=== PATIENT | female | born 1965 | race Caucasian/White ===

== ENCOUNTER 2016-07-05 08:17 | Outpatient (RCR) | payer OTHER ==
--- OUTSIDE RECORDS SUMMARY | 2016-04-17 12:21 | XMS REPORT ---
Author Author POOJA DEY [facility] eClinicalWorks Address Unknown Phone Unavailable Care Team Providers Care Lead Qa Analyst Name Role Phone POOJA DEY Unavailable Allergies No Known Allergies Problems Problem Type Condition Code Onset Dates Condition Status Problem Urinary frequency 788.41 Active Problem Headache 784.0 Active Problem Rash and other nonspecific skin eruption 782.1 Active Problem Cellulitis and abscess 682.9 Active Problem Nondependent tobacco use disorder 305.1 Active Problem Depression 311 Active Problem Other chronic pain 338.29 Active Problem Screening examination for pulmonary tuberculosis V74.1 Active Problem 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
[~2016-07-05 08:17] MED LIST: AMOX500C2 PO; ATOR10TA PO; DABI150C2 PO; IBUP-2055 PO; NDL40T PO; NFPRILOC40 PO; TRM50T PO; TYLENOL
== END 2016-07-16 | disposition home or self-care (01) ==
LOC: WOUNDCARE 08:17
PROVIDERS: ATTEND Surgery
DX: L97.212 Non-pressure chronic ulcer of right calf with fat layer exposed (principal); I87.311 Chronic venous hypertension (idiopathic) with ulcer of right lower extremity; I70.232 Atherosclerosis of native arteries of right leg with ulceration of calf; T65.222A Toxic effect of tobacco cigarettes, intentional self-harm, initial encounter; L92.8 Other granulomatous disorders of the skin and subcutaneous tissue
CPT/HCPCS: 11042; 17250; 87070; 87075; 87205; 99204; 99212; 99213

== ENCOUNTER 2016-08-18 08:18 | Outpatient (RCR) | payer SELFPAY | END 2016-08-18 12:00 | disposition home or self-care (01) | LOC: WOUNDCARE 08:18 | PROVIDERS: ATTEND Surgery | DX: L97.212 Non-pressure chronic ulcer of right calf with fat layer exposed (principal); I87.311 Chronic venous hypertension (idiopathic) with ulcer of right lower extremity; I70.232 Atherosclerosis of native arteries of right leg with ulceration of calf; T65.222A Toxic effect of tobacco cigarettes, intentional self-harm, initial encounter | CPT/HCPCS: 29581; 99212; 99213 ==

== ENCOUNTER 2017-01-17 08:15 | Outpatient (RCR) | payer BC | END 2017-01-22 16:00 | disposition home or self-care (01) | LOC: WOUNDCARE 08:15 | PROVIDERS: ATTEND Surgery | DX: L97.212 Non-pressure chronic ulcer of right calf with fat layer exposed (principal); I87.331 Chronic venous hypertension (idiopathic) with ulcer and inflammation of right lower extremity; I70.232 Atherosclerosis of native arteries of right leg with ulceration of calf; T65.222A Toxic effect of tobacco cigarettes, intentional self-harm, initial encounter | CPT/HCPCS: 11042; 87070; 87075; 87186; 87205; 99212 ==

== ENCOUNTER 2019-03-10 13:33 | Emergency (ER) | payer BC ==
[~2019-03-10] VITALS: Ht 172 cm; Wt 70.0 kg
[2019-03-10] MEDS ORDERED: ASPIRIN 81 MG CHEW (CHILDREN'S ASA) ONE (13:36)
[2019-03-10] MEDS ORDERED: ASPIRIN 81 MG CHEW (CHILDREN'S ASA) PO ONE (13:45)
[2019-03-10 13:52] LABS: BASOPHILS % (AUTO) 0 % (0-10); EOSINOPHILS # (AUTO) 0.1 10^3/uL (0.0-0.3); EOSINOPHILS % (AUTO) 1 % (0-10); HEMATOCRIT 38 % (35-52); HEMOGLOBIN 12.2 G/DL (11.5-16.0); LYMPHOCYTES # (AUTO) 1.7 X 10^3 (1.0-4.0); LYMPHOCYTES % (AUTO) 20 % (12-44); MEAN CORPUSCULAR HEMOGLOBIN 31 PG (25-34); MEAN CORPUSCULAR HGB CONC 33 G/DL (32-36); MEAN CORPUSCULAR VOLUME 95 FL (80-99); MEAN PLATELET VOLUME 9.2 FL (7.4-10.4); MONOCYTES # (AUTO) 0.6 X 10^3 (0.0-1.0); MONOCYTES % (AUTO) 7 % (0-12); NEUTROPHILS % (AUTO) 72 % (42-75); PLATELET COUNT 244 10^3/uL (130-400); RED CELL DISTRIBUTION WIDTH 14.3 % (10.0-14.5); WHITE BLOOD COUNT 8.3 10^3/uL (4.3-11.0)
[2019-03-10 13:59] LABS: PROTHROMBIN TIME PATIENT 13.5 SEC (12.2-14.7)
[2019-03-10 14:06] LABS: ALANINE AMINOTRANSFERASE 7 U/L (0-55); ALBUMIN 4.6 GM/DL (3.2-4.5); ALKALINE PHOSPHATASE 70 U/L (40-136); BILIRUBIN,TOTAL 0.5 MG/DL (0.1-1.0); BUN/CREATININE RATIO 13; CALCIUM 9.9 MG/DL (8.5-10.1); CARBON DIOXIDE 23 MMOL/L (21-32); CHLORIDE 106 MMOL/L (98-107); CREATININE SERUM 0.78 MG/DL (0.60-1.30); GFR ESTIMATED > 60; GLUCOSE 108 MG/DL (70-105); LIPASE 47 U/L (8-78); POTASSIUM 3.9 MMOL/L (3.6-5.0); SODIUM 138 MMOL/L (135-145); TOTAL PROTEIN 7.9 GM/DL (6.4-8.2)
[2019-03-10 14:07] LABS: ACETAMINOPHEN < 10 UG/ML (10-30)
--- NOTE | 2019-03-10 14:13 | Diagnostic Imaging Report ---
INDICATION: Chest pain and cough. TIME OF EXAM: 1:57 PM COMPARISON: Correlation is made with prior chest 06/09/2016. FINDINGS: Heart size is stable. Lungs are hyperinflated consistent with COPD. Chronic parenchymal densities in the upper lobes bilaterally appear stable. No new infiltrate is detected. There is no effusion or pneumothorax. IMPRESSION: Stable chronic changes when compared with examination from 06/09/2016. Dictated by: Dictated on workstation # [id number]
[2019-03-10 14:14] LABS: CREATINE KINASE MB 0.5 NG/ML (<6.6)
[2019-03-10 14:19] LABS: BILIRUBIN,URINE NEGATIVE (NEGATIVE); CLARITY,URINE CLEAR; COLOR,URINE YELLOW; GLUCOSE, URINE (UA) NEGATIVE (NEGATIVE); KETONES,URINE 1+ (NEGATIVE); LEUKOCYTE ESTERASE ,URINE NEGATIVE (NEGATIVE); NITRITE,URINE NEGATIVE (NEGATIVE); PH,URINE 7 (5-9); PROTEIN,URINE NEGATIVE (NEGATIVE); UROBILINOGEN,URINE NORMAL (NORMAL)
[2019-03-10 14:26] LABS: TSH (THYROID ANALYZER) 0.91 UIU/ML (0.35-4.94)
[2019-03-10] MEDS ORDERED: HYDR-700 PO ×2 (14:39→16:39)
--- NOTE | 2019-03-10 14:39 | ED Cardiac General ---
History of Present Illness General Chief Complaint: Chest Pain Stated Complaint: CHEST TIGHTNESS Nursing Triage Note: PT AMBULATES TO ROOM 7 PT CO OF CHEST PAIN FOR APPROX 5 DAYS STATES HAS SHAKING, POOR APPETITE, COUGH, POOR SLEEPING. PT HAS PVD AND CHRONIC WOUND R LOWER EXT. PT ALSO STATES STOPPED TAKING HYDROCODONE APPROX 6 DAYS AGO, STATES HAD BEEN ON 4 MONTHS. Source: patient History of Present Illness Date Seen by Provider: Mar 10, 2019 Time Seen by Provider: 13:38 Initial Comments PT ARRIVES VIA POV FROM HOME C/O CHEST PAIN X 5 DAYS C/O SHAKING / TREMORS FOR 5 DAYS HAS HAD SWEATS OFF AND ON FOR 5 DAYS C/O NON-PRODUCTIVE COUGH ON OCCASION STATES SHE HAS BEEN UNDER ALOT OF STRESS AND CAN'T SLEEP AND HAS HAD DECREASED APPETITE NO NAUSEA/VOMITING NO SHORTNESS OF BREATH NO DIZZINESS NO PALPITATIONS PT HAS CHRONIC LEG ULCERS DUE TO PERIPHERAL VASCULAR DISEASE STATES SHE GOES TO WOUND CARE IN [place], AND WAS THERE THIS AM, AND JUST GOT BACK TO [place] AND CAME TO ER. DID NOT DISCUSS THIS PROBLEM WITH WOUND CARE STATES SHE HAS BEEN ON HYDROCODONE FOR SEVERAL MONTHS AND STOPPED TAKING IT 6 DAYS AGO--SUDDENLY STOPPED/RAN OUT OF IT NTG SL ADVERTISING SPECIALIST: No ASA po ADVERTISING SPECIALIST: No PCP: NONE--USED TO SEE DR. ALMONTE [facility] IN [place] Allergies and Home Medications Allergies Coded Allergies: No Known Drug Allergies (Verified , 11/26/08) Home Medications Atorvastatin Calcium 10 Mg Tablet, 10 MG PO DAILY Prescribed by: Colby DRIVER on 06/09/16 0944 Hydroxyzine HCl 25 Mg Tablet, 25-50 MG PO Q6H Prescribed by: CURT SCHUSTER on 03/10/19 1639 Ibuprofen 200 Mg Tablet, 800 MG PO TID PRN for PAIN, (Reported) Patient Home Medication List Home Medication List Reviewed: Yes Review of Systems Review of Systems Constitutional: see HPI; No chills; diaphoresis; No dizziness, No fever, No malaise, No weakness EENTM: No Symptoms Reported Respiratory: See HPI, Cough; Denies Shortness of Air Cardiovascular: See HPI, Chest Pain; Denies Edema, Denies Irregular Heart Rate, Denies Lightheadedness, Denies Palpitations, Denies Syncope Gastrointestinal: No Symptoms Reported; Denies Abdominal Pain, Denies Nausea, Denies Vomiting Genitourinary: No Symptoms Reported Musculoskeletal: see HPI Skin: see HPI Psychiatric/Neurological: Anxiety, Depressed, Emotional Problems, Tremors Endocrine: No Symptoms Reported Hematologic/Lymphatic: No Symptoms Reported Past Egkuqkb-Ezxzvz-Usmjug Hx Past Med/Social Hx: Reviewed and Corrections made Patient Social History Alcohol Use: Denies Use Recreational Drug Use: No Smoking Status: Current Everyday Smoker (1 1/2 PPD) Type Used: Cigarettes ( 1 1/2 PPD) Recent Foreign Travel: No Contact w/Someone Who Travel: No Recent Infectious Disease Expo: No Recent Hopitalizations: No Immunizations Up To Date Tetanus Booster (TDap): More than 5yrs Seasonal Allergies Seasonal Allergies: No Past Medical History Surgeries: Yes ("ABLATION" OF VESSELS IN LEGS FOR PERIPHERAL VASCULAR DISEASE; REPAIR OF ESOPHAGEAL TEAR) Abdominal, Vascular Surgery Respiratory: No Cardiac: No Peripheral Vascular Neurological: No Reproductive Disorders: No Female Reproductive Disorders: 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 Sexually Transmitted Disease: No HIV/AIDS: No Gastrointestinal: Yes (EDSOPHAGEAL TEAR REPAIR) Crohns Disease, Gastrointestinal Bleed, Esophageal Varices, Cirrhosis Musculoskeletal: Yes (PERIPHERAL VASCULAR DISEASE; CHRONIC LEG WOUNDS) Endocrine: No HEENT: Yes (POOR DENTITION) Cancer: No Psychosocial: No Integumentary: Yes (CHRONIC LEG WOUNDS DUE TO PERIPHERAL VASCULAR DISEASE--ONE ON LEFT LEG IS HEALED, STILL WITH ONE ON RIGHT LOWER LEG, OF 03/10/19) Blood Disorders: No Adverse Reaction/Blood Tranf: No Family Medical History No Pertinent Family Hx Physical Exam Vital Signs Vital Signs - First Documented 03/10/19 13:34 Temp 37.6 Pulse 87 Resp 18 B/P (MAP) 109/58 (75) Pulse Ox 97 O2 Delivery Room Air Capillary Refill : Less Than 3 Seconds Height, Weight, BMI Height: 5'8.00" Weight: 140lbs. 0.0oz. 63.590140vq; 23.00 BMI Method:Estimated General Appearance: No Apparent Distress, WD/WN, Other (REEKS OF CIGARETTES) HEENT: PERRL/EOMI, Other (POOR DENTITION) Neck: Normal Inspection Respiratory: Normal Breath Sounds, No Accessory Muscle Use, No Respiratory Distress Cardiovascular: Regular Rate, Rhythm, No Edema, No JVD, No Murmur, Normal Peripheral Pulses Gastrointestinal: Non Tender, Soft Extremity: Normal Capillary Refill, No Pedal Edema, Other (FRESH, THICK DRESSING TO RIGHT LOWER LEG. ) Neurologic/Psychiatric: Alert, Oriented x3, No Motor/Sensory Deficits, Normal Mood/Affect, utility locate technician II-XII Norm as Tested Skin: Normal Color, Warm/Dry, Other (EXTENSIVE SORES/SCABS/SCARS TO FACE AND ARMS ; HEALED WOUND TO LEFT LOWER LEG. RIGHT LEG WITH DRESSING IN PLACE. ) Progress/Results/Core Measures Results/Orders Lab Results Laboratory Tests Test 03/10/19 13:40 03/10/19 14:10 Range/Units White Blood Count 8.3 4.3-11.0 10^3/uL Red Blood Count 3.93 L 4.35-5.85 10^6/uL Hemoglobin 12.2 11.5-16.0 G/DL Hematocrit 38 35-52 % Mean Corpuscular Volume 95 80-99 FL Mean Corpuscular Hemoglobin 31 25-34 PG Mean Corpuscular Hemoglobin Concent 33 32-36 G/DL Red Cell Distribution Width 14.3 10.0-14.5 % Platelet Count 244 130-400 10^3/uL Mean Platelet Volume 9.2 7.4-10.4 FL Neutrophils (%) (Auto) 72 42-75 % Lymphocytes (%) (Auto) 20 12-44 % Monocytes (%) (Auto) 7 0-12 % Eosinophils (%) (Auto) 1 0-10 % Basophils (%) (Auto) 0 0-10 % Neutrophils # (Auto) 6.0 1.8-7.8 X 10^3 Lymphocytes # (Auto) 1.7 1.0-4.0 X 10^3 Monocytes # (Auto) 0.6 0.0-1.0 X 10^3 Eosinophils # (Auto) 0.1 0.0-0.3 10^3/uL Basophils # (Auto) 0.0 0.0-0.1 10^3/uL Prothrombin Time 13.5 12.2-14.7 SEC INR Comment 1.0 0.8-1.4 Activated Partial Thromboplast Time 31 24-35 SEC Sodium Level 138 135-145 MMOL/L Potassium Level 3.9 3.6-5.0 MMOL/L Chloride Level 106 98-107 MMOL/L Carbon Dioxide Level 23 21-32 MMOL/L Anion Gap 9 5-14 MMOL/L Blood Urea Nitrogen 10 7-18 MG/DL Creatinine 0.78 0.60-1.30 MG/DL Estimat Glomerular Filtration Rate > 60 BUN/Creatinine Ratio 13 Glucose Level 108 H 70-105 MG/DL Calcium Level 9.9 8.5-10.1 MG/DL Corrected Calcium 8.5-10.1 MG/DL Magnesium Level 2.0 1.6-2.4 MG/DL Total Bilirubin 0.5 0.1-1.0 MG/DL Aspartate Amino Transf (AST/SGOT) 10 5-34 U/L Alanine Aminotransferase (ALT/SGPT) 7 0-55 U/L Alkaline Phosphatase 70 40-136 U/L Creatine Kinase MB 0.5 <6.6 NG/ML Myoglobin 23.8 10.0-92.0 NG/ML Troponin I < 0.028 <0.028 NG/ML B-Type Natriuretic Peptide 22.6 <100.0 PG/ML Total Protein 7.9 6.4-8.2 GM/DL Albumin 4.6 H 3.2-4.5 GM/DL Amylase Level 93 25-125 U/L Lipase 47 8-78 U/L TSH [place] Testing 0.91 0.35-4.94 UIU/ML Acetaminophen Level < 10 L 10-30 UG/ML Serum Alcohol < 10 <10 MG/DL Urine Color YELLOW Urine Clarity CLEAR Urine pH 7 5-9 Urine Specific [place] 1.010 L 1.016-1.022 Urine Protein NEGATIVE NEGATIVE Urine Glucose (UA) NEGATIVE NEGATIVE Urine Ketones 1+ H NEGATIVE Urine Nitrite NEGATIVE NEGATIVE Urine Bilirubin NEGATIVE NEGATIVE Urine Urobilinogen NORMAL NORMAL MG/DL Urine Leukocyte Esterase NEGATIVE NEGATIVE Urine RBC (Auto) 2+ H NEGATIVE Urine RBC 5-10 H /HPF Urine WBC RARE /HPF Urine Squamous Epithelial Cells 2-5 /HPF Urine Crystals NONE /LPF Urine Bacteria TRACE /HPF Urine Casts NONE /LPF Urine Mucus NEGATIVE /LPF Urine Culture Indicated NO Urine Opiates Screen NEGATIVE NEGATIVE Urine Oxycodone Screen NEGATIVE NEGATIVE Urine Methadone Screen NEGATIVE NEGATIVE Urine Propoxyphene Screen NEGATIVE NEGATIVE Urine Barbiturates Screen NEGATIVE NEGATIVE Ur Tricyclic Antidepressants Screen NEGATIVE NEGATIVE Urine Phencyclidine Screen NEGATIVE NEGATIVE Urine Amphetamines Screen NEGATIVE NEGATIVE Urine Methamphetamines Screen NEGATIVE NEGATIVE Urine Benzodiazepines Screen NEGATIVE NEGATIVE Urine Cocaine Screen NEGATIVE NEGATIVE Urine Cannabinoids Screen NEGATIVE NEGATIVE My Orders Orders - CURT SCHUSTER DO Cbc With Automated Diff (03/10/19 13:44) Magnesium (03/10/19 13:44) Chest 1 View, Ap/Pa Only (03/10/19 13:44) Ekg Tracing (03/10/19 13:44) Cardiac Profile 1 (03/10/19 13:44) Comprehensive Metabolic Panel (03/10/19 13:44) Myoglobin Serum (03/10/19 13:44) Protime With Inr (03/10/19 13:44) Partial Thromboplastin Time (03/10/19 13:44) O2 (03/10/19 13:44) Monitor-Rhythm Ecg Trace Only (03/10/19 13:44) Ed Iv/Invasive Line Start (03/10/19 13:44) Creatine Kinase Mb (03/10/19 13:44) Lipase (03/10/19 13:44) Amylase (03/10/19 13:44) BNP (03/10/19 13:44) Troponin I (03/10/19 13:44) Aspirin Chewable Tablet (Baby Aspirin Ch (03/10/19 13:45) Acetaminophen (03/10/19 13:44) Alcohol (03/10/19 13:44) Drug Screen Stat (Urine) (03/10/19 13:44) Thyroid Analyzer (03/10/19 13:44) Ua Culture If Indicated (03/10/19 13:44) Aspirin Chewable Tablet (Baby Aspirin Ch (03/10/19 13:36) Medications Given in ED Vital Signs/I&O 03/10/19 03/10/19 03/10/19 13:34 13:34 15:06 Temp 37.6 Pulse 87 76 Resp 18 16 B/P (MAP) 109/58 (75) 106/64 Pulse Ox 97 99 O2 Delivery Room Air Blood Pressure Mean: 75 Progress Progress Note : Progress Note UNEVENTFUL ER STAY SYMPTOMS IMPROVED AT DISMISSAL Departure Impression Primary Impression: Chest pain Additional Impressions: Opiate withdrawal Anxiety Disposition: 01 HOME, SELF-CARE Condition: Improved Departure-Patient Inst. Referrals: CONSTANCE ALMONTE MD (PCP) Primary Care Physician Patient Instructions: Chest Pain That Is Not Caused by the Heart (DC), Chest Pain (DC), Prescription Drug Withdrawal (DC), Anxiety, Adult (DC) Add. Discharge Instructions: TAKE YOUR MEDICATIONS PRESCRIBED FOLLOW UP WITH LOCAL DR OF CHOICE SOON POSSIBLE TO ESTABLISH CARE All discharge instructions reviewed with patient and/or family. Voiced understanding. Scripts Hydroxyzine HCl (Hydroxyzine HCl) 25 Mg Tablet 25-50 MG PO Q6H for Itching, #20 TAB Prov: CURT SCHUSTER DO 03/10/19 CURT SCHUSTER DO Mar 10, 2019 14:39
[2019-03-10 14:43] LABS: AMPHETAMINE SCREEN, URINE NEGATIVE (NEGATIVE); BARBITURATE SCREEN URINE NEGATIVE (NEGATIVE); BENZODIAZEPINES SCREEN URINE NEGATIVE (NEGATIVE); CANNABINOID SCREEN, URINE NEGATIVE (NEGATIVE); COCAINE SCREEN URINE NEGATIVE (NEGATIVE); METHADONE STAT NEGATIVE (NEGATIVE); METHAMPHETAMINE SCREEN URINE S NEGATIVE (NEGATIVE); OPIATE SCREEN URINE NEGATIVE (NEGATIVE); OXYCODONE STAT NEGATIVE (NEGATIVE); PROPOXYPHENE STAT NEGATIVE (NEGATIVE); TRICYCLIC ANTIDEPRESSANTS SCRE NEGATIVE (NEGATIVE)
[2019-03-10 14:48] LABS: BACTERIA,URINE TRACE /HPF; WBC,URINE RARE /HPF
[2019-03-10 15:06] VITALS: BP 106/64
[2019-03-10 15:09] LABS: AMYLASE 93 U/L (25-125)
== END 2019-03-10 15:06 | disposition home or self-care (01) ==
LOC: EDUNIT# 13:33 → ER 13:34
DX: R07.89 Other chest pain (principal); F41.9 Anxiety disorder, unspecified; F11.23 Opioid dependence with withdrawal; I73.89 Other specified peripheral vascular diseases; K74.60 Unspecified cirrhosis of liver; F17.210 Nicotine dependence, cigarettes, uncomplicated; Z91.14 Patient's other noncompliance with medication regimen
CPT/HCPCS: 36415; 71045; 80053; 80306; 80320; 80329; 81000; 82150; 82553; 83690; 83735; 83874; 83880; 84443; 84484; 85025; 85610; 85730; 93005; 93041

== ENCOUNTER → 2020-03-24 | Outpatient (CLI) | payer OTHER ==
[~2020-03-24] MED LIST changes: +HYDR-700 PO; -IBUP-2055 PO; +IBUP-2473 PO; +RT-ALBUTEROL SULF 2.5 MG/3 ML PRE-MIX VIAL INH ONE
--- NOTE | 2020-03-24 15:50 | Diagnostic Imaging Report ---
EXAMINATION: CT Chest without contrast (lung screening). TECHNIQUE: Multiple contiguous axial images were obtained through the chest without the use of intravenous contrast according to lung cancer screening protocol. All CT scans use one or more of the following dose optimizing techniques: automated exposure control, MA and/or KvP adjustment based on a patient size and exam type, or iterative reconstruction. HISTORY: 84 pack year history of smoking. COMPARISON: None available. FINDINGS: There are patchy bilateral areas of nodular consolidation with collapse or consolidation of the left lower lobe and lingula. There is a moderate left pleural effusion. No pneumothorax. There is no axillary or supraclavicular lymphadenopathy. Mildly enlarged mediastinal lymph nodes are likely reactive. There are bilateral breast implants. Heart size is normal. There are mild coronary artery calcifications. No pericardial effusion. Aorta is normal in caliber. Limited views of the upper abdomen are unremarkable. There are no suspicious osseous lesions. IMPRESSION: 1. Left lower lobe collapse and lingular consolidation or collapse with a moderate left pleural effusion and nodular areas of consolidation bilaterally. Correlate for evidence of pneumonia and recommend repeat in one month as a standard chest CT with contrast to better evaluate if there is an underlying neoplasm. LUNG-RADS CATEGORY: 4b MODIFIER: None. Dictated by: Dictated on workstation # [id number]
== END ==
LOC: RT 14:45
PROVIDERS: ATTEND Nurse Practitioner Family
DX: J98.4 Other disorders of lung (principal); Z87.891 Personal history of nicotine dependence; J90 Pleural effusion, not elsewhere classified
CPT/HCPCS: 94060; 94726; 94729; G0297

== ENCOUNTER 2020-05-20 07:55 | Emergency (ER) | payer SELFPAY ==
[~2020-05-20] VITALS: Ht 172.7 cm; Wt 65.0 kg
[~2020-05-20 07:55] MED LIST changes: -RT-ALBUTEROL SULF 2.5 MG/3 ML PRE-MIX VIAL INH ONE
[2020-05-20] MEDS ORDERED: LACTATED RINGERS 1,000 ML IV ONE (08:09)
[2020-05-20] MEDS ORDERED: KETOROLAC 30 MG/ML VIAL IVP ONE (08:15)
[2020-05-20] MEDS ORDERED: ONDANSETRON 4 MG/2 ML (SDV) Z0FRAN IVP ONE (08:15)
[2020-05-20 08:33] LABS: BASOPHILS % (AUTO) 1 % (0-10); EOSINOPHILS # (AUTO) 0.2 10^3/uL (0.0-0.3); EOSINOPHILS % (AUTO) 2 % (0-10); HEMATOCRIT 34 % (35-52); HEMOGLOBIN 10.7 g/dL (11.5-16.0); LYMPHOCYTES # (AUTO) 1.2 10^3/uL (1.0-4.0); LYMPHOCYTES % (AUTO) 15 % (12-44); MEAN CORPUSCULAR HEMOGLOBIN 31 pg (25-34); MEAN CORPUSCULAR HGB CONC 32 g/dL (32-36); MEAN CORPUSCULAR VOLUME 98 fL (80-99); MEAN PLATELET VOLUME 9.9 fL (9.0-12.2); MONOCYTES # (AUTO) 0.6 10^3/uL (0.0-1.0); MONOCYTES % (AUTO) 7 % (0-12); NEUTROPHILS # (AUTO) 6.1 10^3/uL (1.8-7.8); NEUTROPHILS % (AUTO) 75 % (42-75); PLATELET COUNT 265 10^3/uL (130-400); WHITE BLOOD COUNT 8.2 10^3/uL (4.3-11.0)
[2020-05-20 08:34] LABS: BILIRUBIN,URINE NEGATIVE (NEGATIVE); CLARITY,URINE SL CLOUDY; COLOR,URINE YELLOW; GLUCOSE, URINE (UA) NEGATIVE (NEGATIVE); KETONES,URINE NEGATIVE (NEGATIVE); LEUKOCYTE ESTERASE ,URINE NEGATIVE (NEGATIVE); NITRITE,URINE NEGATIVE (NEGATIVE); PROTEIN,URINE NEGATIVE (NEGATIVE)
[2020-05-20 08:35] LABS: ALBUMIN 4.4 GM/DL (3.2-4.5); CHLORIDE 104 MMOL/L (98-107); POTASSIUM 3.9 MMOL/L (3.6-5.0); SODIUM 138 MMOL/L (135-145)
[2020-05-20 08:36] LABS: CALCIUM 9.2 MG/DL (8.5-10.1)
[2020-05-20 08:37] LABS: GLUCOSE 108 MG/DL (70-105); TOTAL PROTEIN 7.9 GM/DL (6.4-8.2)
[2020-05-20 08:38] LABS: CARBON DIOXIDE 21 MMOL/L (21-32)
--- NOTE | 2020-05-20 08:38 | ED General ---
General Chief Complaint: Abdominal/GI Problems Stated Complaint: HEADACHE/N/V Nursing Triage Note: AMB TO ROOM WITH C/O HEADACHE WITH NAUSEA AND VOMITING SINCE LAST NIGHT. HAS BEEN TAKING TRAMDOL AND AMOXIL FOR ULCER ON FOOT. WAS SEEN BY WOUND CARE YESTERDAY. Nursing Sepsis Screen: No Definite Risk Source of Information: Patient, Old Records Exam Limitations: No Limitations History of Present Illness Date Seen by Provider: May 20, 2020 Time Seen by Provider: 08:00 Initial Comments This 55 year old woman presents to the ER with complaints of nausea, vomiting and headache since last night. She denies fever, cough, SOA, myalgia, or COVID exposures. She reports starting Amoxicillin and Ultram yesterday due to treatment of a pressure ulcer on her foot. She was seen in wound care yesterday where these medications were prescribed and cultures were collected. Her foot is in a compressive wrap. Vital signs are WNL. She does not believe the Ultram or amoxicillin are contributing to her nausea as she has taken these medications in the past without problem. She is ambulatory and describes no neurologic deficits. Allergies and Home Medications Allergies Coded Allergies: No Known Drug Allergies (Verified , 11/26/08) Home Medications Atorvastatin Calcium 10 Mg Tablet, 10 MG PO DAILY Prescribed by: Colby DRIVER on 06/09/16 0944 Hydroxyzine HCl 25 Mg Tablet, 25-50 MG PO Q6H Prescribed by: CURT SCHUSTER on 03/10/19 1639 Ibuprofen 200 Mg Tablet, 800 MG PO TID PRN for PAIN, (Reported) Patient Home Medication List Home Medication List Reviewed: Yes Review of Systems Review of Systems Constitutional: no symptoms reported EENTM: no symptoms reported Respiratory: no symptoms reported Cardiovascular: no symptoms reported Gastrointestinal: see HPI Genitourinary: no symptoms reported : No Musculoskeletal: no symptoms reported Skin: no symptoms reported Psychiatric/Neurological: See HPI Hematologic/Lymphatic: No Symptoms Reported Past Xobrnol-Iilusv-Nrfnyi Hx Past Med/Social Hx: Reviewed Nursing Past Med/Soc Hx Patient Social History Alcohol Use: Denies Use Recreational Drug Use: No Smoking Status: Former Smoker Type Used: Cigarettes Recent Foreign Travel: No Contact w/Someone Who Travel: No Recent Infectious Disease Expo: No Recent Hopitalizations: No Immunizations Up To Date Tetanus Booster (TDap): More than 5yrs Seasonal Allergies Seasonal Allergies: No Past Medical History Surgeries: Yes Abdominal, Vascular Surgery Respiratory: No Cardiac: No Peripheral Vascular Neurological: No Reproductive Disorders: No 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 Sexually Transmitted Disease: No HIV/AIDS: No Gastrointestinal: Yes (EDSOPHAGEAL TEAR REPAIR) Crohns Disease, Gastrointestinal Bleed, Esophageal Varices, Cirrhosis Musculoskeletal: Yes (PERIPHERAL VASCULAR DISEASE; CHRONIC LEG WOUNDS) Endocrine: No HEENT: Yes (POOR DENTITION) Cancer: No Psychosocial: No Integumentary: Yes Blood Disorders: No Adverse Reaction/Blood Tranf: No Family Medical History No Pertinent Family Hx Physical Exam Vital Signs Vital Signs - First Documented 05/20/20 08:03 Temp 36.3 Pulse 83 Resp 18 B/P (MAP) 106/86 (93) Pulse Ox 95 O2 Delivery Room Air Capillary Refill : Less Than 3 Seconds Height, Weight, BMI Height: 5'8.00" Weight: 140lbs. 0.0oz. 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 Skin: Normal Color, Warm/Dry Progress/Results/Core Measures Suspected Sepsis Recent Fever Within 48 Hours: No Infection Criteria Present: None New/Unexplained Altered Menta: No Sepsis Screen: No Definite Risk SIRS Temperature: Pulse: 83 Respiratory Rate: 18 Laboratory Tests 05/20/20 08:08: White Blood Count 8.2 Blood Pressure 106 /86 Mean: 93 Laboratory Tests 05/20/20 08:08: Creatinine 0.94, Platelet Count 265, Total Bilirubin 0.5 Results/Orders Lab Results Laboratory Tests Test 05/20/20 08:08 05/20/20 08:27 Range/Units White Blood Count 8.2 4.3-11.0 10^3/uL Red Blood Count 3.44 L 3.80-5.11 10^6/uL Hemoglobin 10.7 L 11.5-16.0 g/dL Hematocrit 34 L 35-52 % Mean Corpuscular Volume 98 80-99 fL Mean Corpuscular Hemoglobin 31 25-34 pg Mean Corpuscular Hemoglobin Concent 32 32-36 g/dL Red Cell Distribution Width 15.5 H 10.0-14.5 % Platelet Count 265 130-400 10^3/uL Mean Platelet Volume 9.9 9.0-12.2 fL Immature Granulocyte % (Auto) 0 % Neutrophils (%) (Auto) 75 42-75 % Lymphocytes (%) (Auto) 15 12-44 % Monocytes (%) (Auto) 7 0-12 % Eosinophils (%) (Auto) 2 0-10 % Basophils (%) (Auto) 1 0-10 % Neutrophils # (Auto) 6.1 1.8-7.8 10^3/uL Lymphocytes # (Auto) 1.2 1.0-4.0 10^3/uL Monocytes # (Auto) 0.6 0.0-1.0 10^3/uL Eosinophils # (Auto) 0.2 0.0-0.3 10^3/uL Basophils # (Auto) 0.0 0.0-0.1 10^3/uL Immature Granulocyte # (Auto) 0.0 0.0-0.1 10^3/uL Sodium Level 138 135-145 MMOL/L Potassium Level 3.9 3.6-5.0 MMOL/L Chloride Level 104 98-107 MMOL/L Carbon Dioxide Level 21 21-32 MMOL/L Anion Gap 13 5-14 MMOL/L Blood Urea Nitrogen 15 7-18 MG/DL Creatinine 0.94 0.60-1.30 MG/DL Estimat Glomerular Filtration Rate > 60 BUN/Creatinine Ratio 16 Glucose Level 108 H 70-105 MG/DL Calcium Level 9.2 8.5-10.1 MG/DL Corrected Calcium 8.9 8.5-10.1 MG/DL Magnesium Level 2.0 1.6-2.4 MG/DL Total Bilirubin 0.5 0.1-1.0 MG/DL Aspartate Amino Transf (AST/SGOT) 13 5-34 U/L Alanine Aminotransferase (ALT/SGPT) 11 0-55 U/L Alkaline Phosphatase 78 40-136 U/L C-Reactive Protein High Sensitivity 1.99 H 0.00-0.50 MG/DL Total Protein 7.9 6.4-8.2 GM/DL Albumin 4.4 3.2-4.5 GM/DL Urine Color YELLOW Urine Clarity SL CLOUDY Urine pH 6.0 5-9 Urine Specific [place] 1.020 1.016-1.022 Urine Protein NEGATIVE NEGATIVE Urine Glucose (UA) NEGATIVE NEGATIVE Urine Ketones NEGATIVE NEGATIVE Urine Nitrite NEGATIVE NEGATIVE Urine Bilirubin NEGATIVE NEGATIVE Urine Urobilinogen 0.2 < = 1.0 MG/DL Urine Leukocyte Esterase NEGATIVE NEGATIVE Urine RBC (Auto) TRACE-I NEGATIVE Urine RBC NONE /HPF Urine WBC RARE /HPF Urine Squamous Epithelial Cells 0-2 /HPF Urine Crystals NONE /LPF Urine Bacteria FEW H /HPF Urine Casts NONE /LPF Urine Mucus NEGATIVE /LPF Urine Culture Indicated NO My Orders Orders - NICOLLE KAISER MD Cbc With Automated Diff (05/20/20 08:09) Comprehensive Metabolic Panel (05/20/20 08:09) Hs C Reactive Protein (05/20/20 08:09) Magnesium (05/20/20 08:09) Ua Culture If Indicated (05/20/20 08:09) Ed Iv/Invasive Line Start (05/20/20 08:09) Ed Iv/Invasive Line Start (05/20/20 08:09) Lactated Ringers (Lr 1000 Ml Iv Solution (05/20/20 08:09) Ketorolac Injection (Toradol Injection) (05/20/20 08:15) Ondansetron Injection (Zofran Injectio (05/20/20 08:15) Tramadol Tablet (Ultram Tablet) (05/20/20 09:00) Rx-Ondansetron Po (Rx-Zofran Po) (05/20/20 09:41) Medications Given in ED Current Medications Medications Dose Ordered Sig/Jayden Route Start Time Stop Time Status Last Admin Dose Admin Ketorolac Tromethamine 15 mg ONCE ONCE IVP 05/20/20 08:15 05/20/20 08:16 DC 05/20/20 08:21 15 MG Lactated Ringer's 1,000 ml @ 0 mls/hr Q0M ONCE IV 05/20/20 08:09 05/20/20 08:11 DC 05/20/20 08:21 1,000 MLS/HR Ondansetron HCl 8 mg ONCE ONCE IVP 05/20/20 08:15 05/20/20 08:16 DC 05/20/20 08:20 8 MG Tramadol HCl 50 mg ONCE ONCE PO 05/20/20 09:00 05/20/20 09:01 DC 05/20/20 09:05 50 MG Vital Signs/I&O 05/20/20 05/20/20 08:03 09:47 Temp 36.3 Pulse 83 76 Resp 18 18 B/P (MAP) 106/86 (93) 106/64 Pulse Ox 95 96 O2 Delivery Room Air Room Air Capillary Refill : Less Than 3 Seconds Blood Pressure Mean: 93 Progress Note #1: Time: 08:57 Progress Note Patient is being treated with Toradol, IV fluids, and Zofran. She reports her nausea has improved but her headache is still there. We will try a dose of tram adol since this is what she takes at home but has not been able to because of the nausea. Work-up has been relatively unremarkable. Patient has been resting comfortably and quietly. She complains of feeling tired. Progress Note #2: Time: 09:43 Progress Note Patient symptoms improved enough to return home and rest. She was discharged with a take-home bottle of Zofran. Departure Impression Primary Impression: Acute headache Qualified Codes: R51 - Headache Additional Impression: Nausea and vomiting Qualified Codes: R11.2 - Nausea with vomiting, unspecified Disposition: 01 HOME, SELF-CARE Condition: Improved Departure-Patient Inst. Decision time for Depature: 09:41 Referrals: CONSTANCE ALMONTE MD (PCP) Primary Care Physician Patient Instructions: Nausea and Vomiting, Adult, Headache, Adult (DC) Add. Discharge Instructions: Adhere to a clear liquid diet for the remainder of the day. Then gradually advance your diet with small quantities of bland food as tolerated. Use Zofran (ondansetron) dissolved under the tongue every 4 hours as needed for nausea and vomiting. You may take Tylenol and/or ibuprofen for pain. Use your Ultram for backup pain. Return to the ER if you have worsening or new symptoms. Call your doctor or the emergency room with questions or concerns about your visit today. All discharge instructions reviewed with patient and/or family. Voiced understanding. Copy Copies To 1: CONSTANCE ALMONTE MD, JOSHUA T MD May 20, 2020 08:38
[2020-05-20 08:39] LABS: BILIRUBIN,TOTAL 0.5 MG/DL (0.1-1.0)
[2020-05-20 08:41] LABS: ALKALINE PHOSPHATASE 78 U/L (40-136); CREATININE SERUM 0.94 MG/DL (0.60-1.30); GFR ESTIMATED > 60
[2020-05-20 08:41] LABS: BACTERIA,URINE FEW /HPF; SQUAMOUS EPITHELIAL CELL,UR 0-2 /HPF; WBC,URINE RARE /HPF
[2020-05-20 08:42] LABS: BUN/CREATININE RATIO 16
[2020-05-20 08:44] LABS: ALANINE AMINOTRANSFERASE 11 U/L (0-55)
--- NOTE | 2020-05-20 09:00 | NUR ---
PATIENT REPORTS THAT NAUSEA BETTER CON'T TO HAVE HEADACHE
[2020-05-20] MEDS ORDERED: RX-ONDANSETRON 4 MG ODT (ZOFRAN) PPK #4 SL STA (09:41)
[2020-05-20 09:47] VITALS: BP 106/64
== END 2020-05-20 09:47 | disposition home or self-care (01) ==
LOC: EDUNIT# 07:55 → ER 07:56
DX: R51.9 Headache, unspecified (principal); R11.2 Nausea with vomiting, unspecified; Z87.891 Personal history of nicotine dependence
CPT/HCPCS: 36415; 80053; 81000; 83735; 85025; 86141

== ENCOUNTER 2023-06-04 13:24 | Emergency (ER) | payer SELFPAY ==
[~2023-06-04] VITALS: Ht 172 cm; Wt 72.5 kg
--- NOTE | 2023-06-04 13:50 | ED Lower Extremity ---
General Chief Complaint: Lower Extremity Stated Complaint: BLOOD CLOT IN LT LEG Source: patient Exam Limitations: no limitations History of Present Illness Date Seen by Provider: Jun 04, 2023 Time Seen by Provider: 13:47 Initial Comments Patient is a 58-year-old female with a history of factor V Leiden, DVTs who presents ED with left leg pain and swelling. She noticed some swelling yesterday which have become worse today. Swelling up to the left thigh. She reports pain with walking. No pain with setting. History of varicose vein removal in the past. She does have history of chronic wound to her left medial ankle. Denies of any redness or warmth. No recent travels or surgeries. Not currently on anticoagulants. DVT several years ago. She denies taking any medication. She denies chest pain short of breath, cough, nausea, vomiting, diarrhea, headache or dizziness. Allergies and Home Medications Allergies Coded Allergies: No Known Drug Allergies (Verified , 11/26/08) Patient Home Medication List Home Medication List Reviewed: Yes Atorvastatin Calcium (Lipitor) 10 Mg Tablet, 10 MG PO DAILY Prescribed by: Colby DRIVER on 06/09/16 0944 Hydroxyzine HCl (Hydroxyzine HCl) 25 Mg Tablet, 25-50 MG PO Q6H Prescribed by: CURT SCHUSTER on 03/10/19 1639 Ibuprofen (Ibuprofen) 200 Mg Tablet, 800 MG PO TID PRN for PAIN, (Reported) Entered as Reported by: SERGE JORGENSEN on 06/09/16 0735 Review of Systems Constitutional: No chills; diaphoresis EENTM: No ear pain, No blurred vision, No double vision Respiratory: No cough, No dyspnea on exertion, No hemoptysis Cardiovascular: No chest pain, No edema Gastrointestinal: No abdominal pain, No diarrhea, No nausea, No vomiting Genitourinary: No decreased output, No discharge, No dysuria, No frequency Musculoskeletal: No back pain, No joint pain; muscle pain, muscle stiffness Skin: change in color All Other Systems Reviewed Negative Unless Noted: Yes Past Baavpuj-Lznqxj-Petwfc Hx Patient Social History Tobacco Use?: No Use of E-Cig and/or Vaping dev: Yes E-Cig or Vaping type used: Nicotine Substance use?: No Alcohol Use?: No Pt feels they are or have been: No Immunizations Up To Date Tetanus Booster (TDap): More than 5yrs Seasonal Allergies Seasonal Allergies: No Past Medical History Surgery/Hospitalization HX: HX OF BLOOD CLOTS Surgeries: Yes Abdominal, Vascular Surgery Respiratory: No Cardiac: No Peripheral Vascular Neurological: No Reproductive Disorders: No Female Reproductive Disorders: Denies ROAD DRIVER History: Menopausal Sexually Transmitted Disease: No HIV/AIDS: No Gastrointestinal: Yes (EDSOPHAGEAL TEAR REPAIR) Crohns Disease, Gastrointestinal Bleed, Esophageal Varices, Cirrhosis Musculoskeletal: Yes (PERIPHERAL VASCULAR DISEASE; CHRONIC LEG WOUNDS) Endocrine: No HEENT: Yes (POOR DENTITION) Cancer: No Psychosocial: No Integumentary: Yes Blood Disorders: No Adverse Reaction/Blood Tranf: No Family Medical History No Pertinent Family Hx Physical Exam Vital Signs Vital Signs - First Documented 06/04/23 13:34 Temp 36.6 Pulse 70 Resp 18 B/P (MAP) 118/59 (78) Pulse Ox 100 O2 Delivery Room Air Capillary Refill : Height, Weight, BMI Height: 5'8.00" Weight: 140lbs. 0.0oz. 63.870115vo; 21.00 BMI Method:Estimated General Appearance: WD/WN, no apparent distress HEENT: PERRL/EOMI, normal ENT inspection, TMs normal, pharynx normal Neck: non-tender, full range of motion, supple Cardiovascular: regular rate, rhythm, no edema, no gallop, no JVD Respiratory: chest non-tender, lungs clear, normal breath sounds, no respiratory distress Gastrointestinal: normal bowel sounds, non tender, soft, no organomegaly Back: normal inspection, no CVA tenderness Legs: left leg pain, left leg soft tissue tenderness (left calf swelling and tenderness), left leg swelling Feet: left foot other (+2 dorsalis pedis bilateral. 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, no motor/sensory deficits, alert, normal mood/affect, oriented x 3 Skin: normal color Progress/Results/Core Measures Results/Orders Lab Results Laboratory Tests Test 06/04/23 14:17 Range/Units White Blood Count 5.5 4.3-11.0 10^3/uL Red Blood Count 3.67 L 3.80-5.11 10^6/uL Hemoglobin 11.4 L 11.5-16.0 g/dL Hematocrit 34 L 35-52 % Mean Corpuscular Volume 94 80-99 fL Mean Corpuscular Hemoglobin 31 25-34 pg Mean Corpuscular Hemoglobin Concent 33 32-36 g/dL Red Cell Distribution Width 13.5 10.0-14.5 % Platelet Count 176 130-400 10^3/uL Mean Platelet Volume 9.5 9.0-12.2 fL Immature Granulocyte % (Auto) 0 % Neutrophils (%) (Auto) 75 42-75 % Lymphocytes (%) (Auto) 14 12-44 % Monocytes (%) (Auto) 8 0-12 % Eosinophils (%) (Auto) 2 0-10 % Basophils (%) (Auto) 1 0-10 % Neutrophils # (Auto) 4.1 1.8-7.8 10^3/uL Lymphocytes # (Auto) 0.8 L 1.0-4.0 10^3/uL Monocytes # (Auto) 0.4 0.0-1.0 10^3/uL Eosinophils # (Auto) 0.1 0.0-0.3 10^3/uL Basophils # (Auto) 0.0 0.0-0.1 10^3/uL Immature Granulocyte # (Auto) 0.0 0.0-0.1 10^3/uL Prothrombin Time 13.8 12.2-14.7 SEC INR Comment 1.0 0.8-1.4 Activated Partial Thromboplast Time 30 24-35 SEC Sodium Level 139 135-145 MMOL/L Potassium Level 4.0 3.6-5.0 MMOL/L Chloride Level 109 H 98-107 MMOL/L Carbon Dioxide Level 18 L 21-32 MMOL/L Anion Gap 12 5-14 MMOL/L Blood Urea Nitrogen 20 H 7-18 MG/DL Creatinine 0.85 0.60-1.30 MG/DL Estimat Glomerular Filtration Rate 79 BUN/Creatinine Ratio 24 Glucose Level 92 70-105 MG/DL Calcium Level 9.7 8.5-10.1 MG/DL Corrected Calcium 9.3 8.5-10.1 MG/DL Total Bilirubin 0.6 0.1-1.0 MG/DL Aspartate Amino Transf (AST/SGOT) 15 5-34 U/L Alanine Aminotransferase (ALT/SGPT) 14 0-55 U/L Alkaline Phosphatase 97 40-136 U/L Total Protein 7.9 6.4-8.2 GM/DL Albumin 4.5 3.2-4.5 GM/DL My Orders Orders - DWIGHT SANDERSON Us Venous Lower Ext Lt (06/04/23 13:46) Cbc And Automated Diff (06/04/23 13:46) Comprehensive Metabolic Panel (06/04/23 13:46) Partial Thromboplastin Time (06/04/23 13:46) Protime With Inr (06/04/23 13:46) Heparin Drip 11962 Unit/500ml (Heparin (06/04/23 15:45) Heparin (Bolus Per Protocol) (Heparin (B (06/04/23 15:45) Iohexol Injection (Omnipaque 350 Mg/Ml 1 (06/04/23 16:45) Ns (Ivpb) 100 Ml (Sodium Chloride 0.9% 1 (06/04/23 16:45) Ct Staci Chest/Noang Abd-Pelv W (06/04/23 16:00) Medications Given in ED Current Medications Medications Dose Ordered Sig/Jayden Route Start Time Stop Time Status Last Admin Dose Admin Heparin Sodium (Porcine) HEPARIN FULL PROTOC... ONCE ONCE IV 06/04/23 15:45 06/04/23 15:46 DC 06/04/23 16:01 10,000 UNIT Heparin Sodium/ Dextrose 500 ml @ 0 mls/hr Q0M ONCE IV 06/04/23 15:45 06/04/23 15:46 DC 06/04/23 16:11 26.3 MLS/HR Iohexol 100 ml ONCE ONCE IV 06/04/23 16:45 06/04/23 16:46 DC 06/04/23 16:54 75 ML Sodium Chloride 100 ml ONCE ONCE IV 06/04/23 16:45 06/04/23 16:46 DC 06/04/23 16:54 80 ML Vital Signs/I&O 06/04/23 06/04/23 06/04/23 13:34 17:18 18:41 Temp 36.6 36.6 Pulse 70 74 84 Resp 18 18 18 B/P (MAP) 118/59 (78) 118/52 102/63 Pulse Ox 100 97 98 O2 Delivery Room Air Room Air Departure Communication (PCP) Reviewed previous ER visits, H&P, lab testing. History of factor V Leiden, DVT of the right leg. Left leg pain and swelling started yesterday. Increased welling today. Pulses noted distally. Swelling noted to the left calf left thigh. Denies any chest pain or shortness of breath. She is not tachycardic or hypoxic. Ultrasound of the left leg shows extensive left lower extremity DVT up to the common femoral vein. Potential candidate for clot removal. Patient was discussed with Dr. Crow vascular surgeon at [facility]. At this time recommended transfer to [facility]. Recommend starting on heparin. Provided heparin bolus and heparin drip. Suggest a CT abdomen and pelvis with contrast. Did not necessarily recommend angio at this time. Dr. Green who agreed to accept patient. Wants me to proceed with CT angio of the chest discussed patient with the hospitalist and CT abdomen and pelvis. Patient will be transferred by EMS. Currently hemodynamically stable. CT chest shows focal pulmonary embolism in right main pulmonary artery extending in the right upper lobe. There is marked distention of the left gonadal vein which is concern for thrombosis. These images were clouded to [facility]. Impression Primary Impression: Left leg DVT Additional Impression: Pulmonary embolism Disposition: 02 XFER SHT-TRM HOSP Condition: Stable Transfer Medically Cleared for Xfer: Yes Transfer Reason: Exceeds level of care Time Spoke to Accepting Phy: 15:[address] Green Transfer Time: 15:55 Transfer Facility: [facility] Method of Transfer: EMS Departure-Patient Inst. Referrals: NO,LOCAL PHYSICIAN (PCP/Family) Primary Care Physician DWIGHT SANDERSON Jun 04, 2023 13:50
[2023-06-04 14:34] LABS: BASOPHILS % (AUTO) 1 % (0-10); EOSINOPHILS # (AUTO) 0.1 10^3/uL (0.0-0.3); EOSINOPHILS % (AUTO) 2 % (0-10); HEMATOCRIT 34 % (35-52); HEMOGLOBIN 11.4 g/dL (11.5-16.0); LYMPHOCYTES # (AUTO) 0.8 10^3/uL (1.0-4.0); LYMPHOCYTES % (AUTO) 14 % (12-44); MEAN CORPUSCULAR HEMOGLOBIN 31 pg (25-34); MEAN CORPUSCULAR HGB CONC 33 g/dL (32-36); MEAN CORPUSCULAR VOLUME 94 fL (80-99); MEAN PLATELET VOLUME 9.5 fL (9.0-12.2); MONOCYTES # (AUTO) 0.4 10^3/uL (0.0-1.0); MONOCYTES % (AUTO) 8 % (0-12); NEUTROPHILS # (AUTO) 4.1 10^3/uL (1.8-7.8); NEUTROPHILS % (AUTO) 75 % (42-75); PLATELET COUNT 176 10^3/uL (130-400); WHITE BLOOD COUNT 5.5 10^3/uL (4.3-11.0)
[2023-06-04 14:44] LABS: PROTHROMBIN TIME PATIENT 13.8 SEC (12.2-14.7)
[2023-06-04 14:45] LABS: ALBUMIN 4.5 GM/DL (3.2-4.5)
[2023-06-04 14:46] LABS: CALCIUM 9.7 MG/DL (8.5-10.1)
[2023-06-04 14:48] LABS: TOTAL PROTEIN 7.9 GM/DL (6.4-8.2)
[2023-06-04 14:49] LABS: BILIRUBIN,TOTAL 0.6 MG/DL (0.1-1.0)
[2023-06-04 14:51] LABS: CREATININE SERUM 0.85 MG/DL (0.60-1.30)
--- NOTE | 2023-06-04 15:15 | Diagnostic Imaging Report ---
EXAMINATION: US Lower Extremity Venous Duplex Left. TECHNIQUE: Multiple real-time grayscale images were obtained over the left lower extremity in various projections. Additional spectral analysis and color Doppler duplex images were also obtained. HISTORY: Left lower extremity pain and swelling. COMPARISON: None available. FINDINGS: Deep vein thrombus is seen throughout the left lower extremity venous system involving the left common femoral, profunda femoris, superficial femoral, popliteal, and calf vessels. These vessels demonstrate noncompressibility with no color Doppler filling. IMPRESSION: 1. Extensive deep vein thrombus throughout the left lower extremity. Dictated by: Dictated on workstation # [id number]
[2023-06-04] MEDS ORDERED: HEParin DRIP 25000 UNIT/500ML 500 ML IV ONE (15:45)
[2023-06-04] MEDS ORDERED: HEParin 1000 UNIT/ML (10ML VIAL) FOR BOLUS IV ONE (15:45)
[2023-06-04] MEDS ORDERED: NS 100 ML (IVPB) BAG IV ONE (16:45)
[2023-06-04] MEDS ORDERED: IOHEXOL 350 MG/ML 100 ML (OMNIPAQUE 350) VIAL IV ONE (16:45)
--- NOTE | 2023-06-04 17:25 | Diagnostic Imaging Report ---
INDICATION: rule out pe-left lower abd pain CTA chest, abdomen and pelvis Thin axial sections through the chest, abdomen and pelvis are obtained following intravenous contrast bolus. Multiplanar MIP images were reconstructed and reviewed. All CT scans use one or more of the following dose optimizing techniques: automated exposure control, MA and/or KvP adjustment based on patient size and exam type or iterative reconstruction. Comparison is made with prior exam of 03/24/2020. FINDINGS: There is some biapical pleural thickening or scarring. There are no suspicious pulmonary nodules or masses. There is no pleural or pericardial fluid. There is no pneumothorax. The thoracic aorta is normal caliber without evidence of dissection. There is a filling defect in the proximal right main pulmonary artery extending into the right upper lobe pulmonary artery suspect for pulmonary embolism. There is no pathologically enlarged adenopathy in the chest. There has been bilateral breast augmentation with implants. The liver is normal in size without focal lesions. Gallbladder is unremarkable. No biliary duct dilatation. The distal esophagus and stomach are normal. The spleen is normal. The pancreas and adrenal glands are unremarkable. 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 There is marked distention of the left gonadal vein with low density material. This is suspect for thrombus. There are some inflammatory changes in the right lower quadrant. The appendix is not well visualized. There is no free air. There is no discrete fluid collection to suggest abscess. Bladder is normal. Uterus is normal. There is no pelvic mass or adenopathy. There are degenerative changes in the spine. IMPRESSION: Focal pulmonary embolism in the right main pulmonary artery extending in the right upper lobe Biapical pleural thickening or scarring. 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 Additionally, there is questionable deep venous thrombosis in the left gonadal vein. Nonspecific inflammatory changes in the right lower quadrant. The appendix is not definitively visualized. While this may reflect appendicitis, other etiologies such as inflammatory bowel disease or severe enteritis are also considerations. Recommend clinical correlation. Normal gallbladder and no evidence of obstructive uropathy. Dictated by: Dictated on workstation # [id number]
[2023-06-04 18:41] VITALS: BP 102/63
== END 2023-06-04 18:40 | disposition short-term general hospital (02) ==
LOC: EDUNIT# 13:24 → ER 13:26
DX: I82.402 Acute embolism and thrombosis of unspecified deep veins of left lower extremity (principal); I26.99 Other pulmonary embolism without acute cor pulmonale; F17.290 Nicotine dependence, other tobacco product, uncomplicated; Z98.890 Other specified postprocedural states
CPT/HCPCS: 36415; 71275; 74177; 80053; 85025; 85610; 85730